=== PATIENT | female | born 1960 | race Caucasian/White ===

== ENCOUNTER 2025-05-08 06:18 | Day surgery (SDC) | payer MEDICARE, SELFPAY ==
[2025-05-08] VITALS (16 sets, daily range): BP systolic 137–178; BP diastolic 76–100; PULSE 67–80; RESP 14–20; TEMP 36.2–36.3; O2SAT 96–100; BMI 63.8
[2025-05-08] MEDS: LIDOCAINE 1%-EPI 1:100,000 20 ML INFILTRATI (07:28)
[2025-05-08] MEDS: BUPIVACAINE 0.5 %/EPI 1:200K INJECTION (07:28)
--- NOTE | 2025-05-08 08:19 | PM.ORPRC ---
Procedure Note Date of procedure: 05/08/25 Procedure: Preop diagnosis: Right hand ring finger stenosing tenosynovitis Postop diagnosis: Right hand ring finger stenosing tenosynovitis Procedure: Right hand ring finger A1 pipe release Anesthesia: Local Surgeon: Milton Cain MD orthotics assistant: Trae Ponce PA-C EBL: 1 mL Complications: None Specimens: None Drains: None Preoperative antibiotics: None Indications: The patient has a history of right upper extremity ring finger painful catching and locking. Despite appropriate non operative management including flexor tendon sheath corticosteroid injections they continue to have symptoms. Operative intervention was recommended. The risks, benefits alternatives and expected outcomes were discussed in detail. These included but were not limited to: Infection, bleeding, injury to blood vessel or nerve, venous thromboembolism. All questions were answered to their satisfaction. The patient was placed supine on the operating room table. Local anesthesia was established with 0.5% Marcaine with epinephrine and 2% lidocaine with epinephrine. The hand was prepped and draped in usual sterile fashion. A transverse incision was made centered over the base of the ring finger in the distal palmar crease. Subcutaneous dissection was taken through the palmar fascia to the flexor tendons with the tenotomy scissors. The A1 pipe was released with the 15 blade and tenotomy scissors. Active flexion and extension of the finger shows no catching or locking, no bowstringing of the flexor tendons. The wound was closed with interrupted nylon sutures. A dry dressing was applied. Sponge and needle counts were correct x 2. The patient tolerated the procedure well, there were no apparent complications. They were sent to same day surgery in satisfactory condition. Plan: Use of the hand as tolerates. Discontinue the intraoperative dressing on postoperative day 3 and may get the wound wet as tolerates. Follow up in the office in 2 weeks for a wound check and suture removal.
== END 2025-05-08 08:46 | disposition home or self-care (01) ==
LOC: OR 06:19
PROVIDERS: PCP Physician Assistant Medical; Visit Provider Orthopaedic Surgery
PROC: (CPT 26055; principal; 2025-05-08 07:30)
DX: M65.341 Trigger finger, right ring finger (principal); M65.841 Other synovitis and tenosynovitis, right hand
CPT/HCPCS: 26055; J3490